=== PATIENT | female | born 1970 | race American Indian/Alaskan Native ===

== ENCOUNTER 2022-02-15 19:14 | Emergency (ER) | payer SELFPAY ==
[2022-02-15 19:31] VITALS: BP 159/82
[2022-02-15] MEDS ORDERED: HYDROcodone/ACETAMINOPHEN 7.5-325MG TAB PO ONE (21:58)
== END 2022-02-15 22:01 | disposition left against medical advice (07) ==
LOC: ED 19:14
DX: S52.92XA Unspecified fracture of left forearm, initial encounter for closed fracture (principal); Z53.21 Procedure and treatment not carried out due to patient leaving prior to being seen by health care provider; X58.XXXA Exposure to other specified factors, initial encounter; Y93.89 Activity, other specified; Y92.89 Other specified places as the place of occurrence of the external cause; Y99.8 Other external cause status